=== PATIENT | male | born 1950 | race American Indian/Alaskan Native ===

== ENCOUNTER 2017-05-24 11:09 | Emergency (ER) | payer OTHER ==
[2017-05-24 11:15] VITALS: BP 147/74; PULSE 94; RESP 16; TEMP 97.7; O2SAT 97
[2017-05-24 12:16] LABS: BASO # 0.1 K/uL (0.0-0.2); BASO % 0.9 % (0.0-2.0); EOS # 0.3 K/uL (0.0-0.7); EOS % 3.4 % (0.0-4.0); HEMATOCRIT 41.8 % (35.0-51.0); LYMPH # 2.8 K/uL (1.0-4.3); LYMPH % 33.9 % (20.0-40.0); MEAN CELL VOLUME 95.7 fL (80.0-94.0); MEAN CORPUSCULAR HGB CONC 33.4 g/dL (33.0-37.0); MEAN PLATELET VOLUME 6.7 fL (7.2-11.7); MONO # 0.5 K/uL (0.0-0.8); MONO % 6.2 % (0.0-10.0); NRBC % 0.1 % (0.0-2.0); RED CELL DISTRIBUTION WIDTH 13.2 % (11.5-14.5); WHITE BLOOD COUNT 8.4 K/uL (4.8-10.8)
[2017-05-24] MEDS ORDERED: Morphine 30 mg SR Tab PO ONE (12:20)
--- NOTE | 2017-05-24 12:20 | C.PDOC ---
History Of Present Illness 67 y/o male presents to emergency department with complaint of right foot pain worsening over the past 1 month. Patient has been seen by vascular surgeon Dr. Bloom, who instructed patient to have outpatient CT angio done. However patient has been unable to schedule test, of the leg, and is concerned due to pain. He denies falls or injuries, chest pain, SOB, fever. Time Seen by Provider: 05/24/17 11:11 Chief Complaint (Nursing): Lower Extremity Problem/Injury History Per: Patient History/Exam Limitations: no limitations Onset/Duration Of Symptoms: Persistent Current Symptoms Are (Timing): Still Present Severity: Mild Past Medical History Reviewed: Historical Data, Nursing Documentation, Vital Signs Vital Signs: Last Vital Signs Temp 97.7 F 05/24/17 11:12 Pulse 94 H 05/24/17 11:12 Resp 16 05/24/17 11:12 BP 147/74 05/24/17 11:12 Pulse Ox 97 05/24/17 15:22 - Medical History PMH: No Chronic Diseases Other PMH: PVD Family History: States: No Known Family Hx - Social History Hx Alcohol Use: No Hx Substance Use: No - Immunization History Hx Tetanus Toxoid Vaccination: No Hx Influenza Vaccination: No Hx Pneumococcal Vaccination: No Review Of Systems Except As Marked, All Systems Reviewed And Found Negative. Constitutional: Negative for: Fever, Chills Cardiovascular: Negative for: Chest Pain, Palpitations Respiratory: Negative for: Cough, Shortness of Breath Gastrointestinal: Negative for: Nausea, Vomiting Musculoskeletal: Positive for: Foot Pain (R) Skin: Negative for: Rash Neurological: Negative for: Weakness, Numbness, Dizziness Physical Exam - Physical Exam Appears: Well, Non-toxic, Other (in mild pain) Skin: Warm, Dry, Other (see extremity exam) Oral Mucosa: Moist Cardiovascular: Rhythm Regular Respiratory: Normal Breath Sounds, No Rales, No Rhonchi, No Wheezing Gastrointestinal/Abdominal: Normal Exam, Bowel Sounds, Soft, No Tenderness Back: Normal Inspection Extremity: Normal ROM, Tenderness (toes ), No Calf Tenderness, No Deformity, Other (R foot: skin mildly erythematous and toes mildly swollen, no warmth to touch, diminished pedal pulse) Pulses: Left Dorsalis Pedis: Normal, Right Dorsalis Pedis: Decreased Neurological/Psych: Oriented x3, Normal Sensation Gait: Steady ED Course And Treatment - Laboratory Results Result Diagrams: 05/24/17 12:12 05/24/17 12:12 O2 Sat by Pulse Oximetry: 97 (RA) Pulse Ox Interpretation: Normal - CT Scan/US CT Angio Lower Ext Other Rad Studies (CT/US): Read By Radiologist, Radiology Report Reviewed CT/US Interpretation: IMPRESSION: CT ANGIOGRAM ABDOMEN/ PELVIS: 1. Remarkable CT angiogram of the abdomen pelvis. RIGHT LOWER EXTREMITY CT ANGIOGRAM: 1. Common femoral artery profunda femoral artery are normal. 2. Multifocal areas of mild to severe stenosis throughout the SFA within area occlusion distal SFA. 3. Popliteal artery has moderate to severe stenosis. 4. Runoff shows an occluded popliteal artery and anterior tibial artery. The peroneal artery occludes in the proximal segment and reconstitutes via collaterals remains patent. LEFT LOWER EXTREMITY CT ANGIOGRAM: 1. Unremarkable common femoral artery profunda femoral artery. 2. Short segment area of moderate stenosis in the mid SFA. 3. Popliteal artery has a short segment severe stenosis in the mid segment. 4. Runoff shows occlusion of the anterior tibial artery posterior tibial artery. The peroneal artery occludes proximally then reconstitutes distally. Progress Note: Blood work and CT angio ordered and reviewed. Patient given low dose IV morphine for pain. Reevaluation Time: 15:30 Reassessment Condition: Improved (Patient reassessed, is comfortable and ambulating normally in ED. Pain has improved. Patient given copies of all studies, and was instructed to follow up with Dr. Bloom tomorrow in his office. Patient understands he should return to ED if he has any concerning symptoms.) - Physician Consult Information Physician Contacted: Hiram Bloom Jr. Outcome Of Conversation: Discussed angio results with Dr. Bloom, patient can be discharged home and will follow up with him in the office tomorrow. Disposition Counseled Patient/Family Regarding: Studies Performed, Diagnosis, Need For Followup - Disposition Referrals: Hiram Bloom Jr., MD [Staff Provider] - Disposition: HOME/ ROUTINE Disposition Time: 15:30 Condition: STABLE Additional Instructions: FOLLOW UP WITH DR BLOOM IN THE OFFICE TOMORROW RETURN TO ER IF YOU HAVE ANY CONCERNING SYMPTOMS Instructions: Peripheral Vascular Disease (ED) Forms: [employer] (Romansh) Print Language: PALAUAN - POA Present On Arrival: None - Clinical Impression Clinical Impression: PVD (peripheral vascular disease) - Scribe Statement The provider has reviewed the documentation as recorded by the Scribe Burt Ray All medical record entries made by the Scribe were at my direction and personally dictated by me. I have reviewed the chart and agree that the record accurately reflects my personal performance of the history, physical exam, medical decision making, and the department course for this patient. I have also personally directed, reviewed, and agree with the discharge instructions and disposition.
[2017-05-24 12:24] LABS: CHLORIDE 99 mmol/L (98-107); SODIUM 136 mmol/L (132-148)
[2017-05-24 12:25] LABS: POTASSIUM 4.3 mmol/L (3.6-5.2)
[2017-05-24 12:27] LABS: ALB/GLOB RATIO 0.9 (1.0-2.1); ALKALINE PHOSPHATASE 95 U/L (38-126); ALT/SGPT 28 U/L (21-72); AST/SGOT 20 U/L (17-59); BILIRUBIN,TOTAL 0.5 mg/dL (0.2-1.3); BLOOD UREA NITROGEN 18 mg/dL (9-20); CARBON DIOXIDE 27 mmol/L (22-30); GFR AFRICAN-AMERICAN > 60; GLUCOSE,RANDOM 95 mg/dL (75-110); TOTAL PROTEIN 9.6 g/dL (6.3-8.3)
[2017-05-24 12:28] LABS: CALCIUM 8.7 mg/dl (8.6-10.4)
[2017-05-24] MEDS ORDERED: Iodixanol 320 mg/ml 150 ml Bottle IV ONE (13:38)
--- NOTE | 2017-05-24 15:02 | CT ---
PROCEDURE: CT Angiography Abdomen, Pelvis and Lower Extremity with Contrast HISTORY: right leg PVD COMPARISON: None. TECHNIQUE: Technique: CT angiography of the abdomen, pelvis and bilateral lower extremities performed in the arterial phase of enhancement. Coronal and sagittal reformats, and well as rotating MIP images of the vessels generated at the workstation. Intravenous contrast dose: 150 milliliters Visipaque 320 Radiation dose: Total exam DLP = 1730.95 MGy-cm. This CT exam was performed using one or more of the following dose reduction techniques: Automated exposure control, adjustment of the mA and/or kV according to patient size, and/or use of iterative reconstruction technique. FINDINGS: CT ANGIOGRAPHY: ABDOMINAL AORTA:: the abdominal has moderate calcific plaque but otherwise unremarkable without stenosis or aneurysm. MAJOR AORTIC BRANCHES: Celiac Xenia: Unremarkable. Superior mesenteric artery: Unremarkable. Inferior mesenteric artery: Unremarkable. Renal arteries: Unremarkable. PELVIC ARTERIES: Right Common Iliac: Unremarkable. Right External Iliac: Unremarkable. Right Internal Iliac: Unremarkable. Left Common Iliac: Unremarkable. Left External Iliac: Unremarkable. Left Internal Iliac: Unremarkable. RIGHT LOWER EXTREMITY ARTERIES: Right Common Femoral: Unremarkable. Right Superficial Femoral: Multifocal areas of mild to severe stenosis throughout the SFA with a short segment occlusion of the distal SFA with reconstitution of the popliteal artery. Right Profunda Femoris: Unremarkable. Right Popliteal:Severe stenosis of popliteal artery. Right Anterior Tibial: Calcified and believed to be occluded Right Tibioperoneal Trunk: Unremarkable. Right Posterior Tibial: occluded. Right Peroneal: Proximal peroneal artery is occluded with reconstitution. The mid and distal peroneal artery is unremarkable. Right dorsalis pedis : Unremarkable. LEFT LOWER EXTREMITY ARTERIES: Left Common Femoral: Unremarkable. Left Superficial Femoral: Short segment area of moderate stenosis in the distal mid SFA. Left Profunda Femoris: Unremarkable. Left Popliteal: Short segment area of severe stenosis in the mid popliteal artery Left Anterior Tibial: Calcified and believed to occlude in the proximal segment with no reconstitution. Left Tibioperoneal Trunk: Severe calcification of the tibioperoneal artery which is otherwise patent. Left Posterior Tibial: Occluded Left Peroneal: Moderate calcific plaque occludes the proximal segment with possible distal reconstitution. Left Dorsalis pedis: Unremarkable. NON-ANGIOGRAPHIC ASPECT OF THE EXAM: LOWER THORAX: Emphysematous changes otherwise unremarkable LIVER: Unremarkable. No gross lesion or ductal dilatation. GALLBLADDER AND BILE DUCTS: Unremarkable. PANCREAS: Unremarkable. No gross lesion or ductal dilatation. SPLEEN: Unremarkable. ADRENALS: 15 millimeter right adrenal hypodense lesion. KIDNEYS AND URETERS: Unremarkable. No hydronephrosis. No solid mass. STOMACH AND BOWEL: Unremarkable. No obstruction. No gross mural thickening. APPENDIX: Normal appendix. PERITONEUM: Unremarkable. No free fluid. No free air. LYMPH NODES: Unremarkable. No enlarged lymph nodes. BLADDER: Unremarkable. REPRODUCTIVE: Unremarkable. BONES: No acute fracture. OTHER FINDINGS: None. IMPRESSION: CT ANGIOGRAM ABDOMEN/ PELVIS: 1. Remarkable CT angiogram of the abdomen pelvis. RIGHT LOWER EXTREMITY CT ANGIOGRAM: 1. Common femoral artery profunda femoral artery are normal. 2. Multifocal areas of mild to severe stenosis throughout the SFA within area occlusion distal SFA. 3. Popliteal artery has moderate to severe stenosis. 4. Runoff shows an occluded popliteal artery and anterior tibial artery. The peroneal artery occludes in the proximal segment and reconstitutes via collaterals remains patent. LEFT LOWER EXTREMITY CT ANGIOGRAM: 1. Unremarkable common femoral artery profunda femoral artery. 2. Short segment area of moderate stenosis in the mid SFA. 3. Popliteal artery has a short segment severe stenosis in the mid segment 4. Runoff shows occlusion of the anterior tibial artery posterior tibial artery. The peroneal artery occludes proximally then reconstitutes distally.
== END 2017-05-24 15:44 | disposition home or self-care (01) ==
LOC: C.ER 11:09
DX: I73.9 Peripheral vascular disease, unspecified (principal)
CPT/HCPCS: 75635; 80053; 85025; 85610; 85730; 96374; 99284; J2270; Q9967

== ENCOUNTER 2017-06-05 07:01 | Day surgery (SDC) | payer OTHER ==
[2017-05-29 11:08] VITALS: BMI 23.7
[2017-06-05] MEDS ORDERED: Midazolam 2 MG/2 ML VIAL ONE ×3 (08:40→09:16)
[2017-06-05] MEDS ORDERED: Propofol 10 mg/ml Inj (20 ML) ONE (08:40)
[2017-06-05] MEDS ORDERED: Iodixanol 320 MG/ML 200 ML BOTTLE IV ONE (08:45)
[2017-06-05] MEDS ORDERED: Iodixanol 320 MG/ML 100 ML BOTTLE IV ONE ×2 (08:45→09:37)
[2017-06-05] MEDS ORDERED: Lidocaine 2% Inj (20ml) ONE (08:45)
[2017-06-05] MEDS ORDERED: Nitroglycerin 50mg in D5W 50 MG/250 ML BOTTLE IV ONE (10:18)
[2017-06-05] MEDS ORDERED: Labetalol 25mg/5ml Syringe ONE (10:43)
--- NOTE | 2017-06-05 11:16 | PCM.SURG1 ---
Surgeon's Initial Post Op Note - Surgeon's Notes Surgeon: elena Senior Process Engineer: 0 Anesthesia Administered By: savage paris Pre-Operative Diagnosis: rest pain right foot Operative Findings: right distal sfa occlusion. distal peroneal reconstitiution. dp and pt reconstiute in foot. left has tibial disease and atheromas in left groin Post-Operative Diagnosis: same Operation Performed: oertofemoral angiogram via left groin. selective catherization of right femoral artery. pathway atherctomy. balloon 5mm to treated area/sfa and proximally with DCB. pressure closure left groin Specimen/Specimens Removed: 0 Estimated Blood Loss: EBL {In ML}: 50 Blood Products Given: N/A Drains Used: No Drains Post-Op Condition: Good Date of Surgery/Procedure: 06/05/17 Time of Surgery/Procedure: 11:20
--- NOTE | 2017-06-05 19:51 | VAS ---
DATE: 06/05/2017 PREOPERATIVE DIAGNOSES: Rest pain, right foot. PROCEDURE CARRIED OUT: Aortofemoral angiogram via left groin with selective catheterization of right femoral artery, Pathway atherectomy of the right superficial femoral artery and balloon angioplasty using a 5 mm drug-coated balloon to the treated area as well as proximally to the superficial femoral artery. SURGEON: Hiram Serrano MD NNPS: None. ANESTHESIOLOGIST: Dr. Mo. INDICATIONS: The patient is a 67-year-old male, diabetic, hypertensive, ex-smoker with rest pain in the right foot. PROCEDURE AND FINDINGS: The aorta and renal arteries were free of significant occlusive disease. The iliac arteries, common iliac and external iliac arteries, were free of significant occlusive disease. Both common femoral arteries were free of significant occlusive disease. On the left leg, the superficial femoral artery was widely patent to the tibial vessels. Below that on the left side, detailed pictures were not taken due to the dye limitations. On the right side, the superficial femoral artery occluded just above Joselo's canal and reconstituted approximately 5 cm later. The popliteal artery was continued down to the trifurcation where there were no named vessels feeding of this. All three vessels, the anterior tibial, posterior tibial and peroneal were occluded. In the distal half of the peroneal artery, it reconstituted. It supplied branches which reconstituted both the dorsalis pedis and posterior tibial below the ankle. Subsequent to the performance of the diagnostic arteriogram, guidewire was advanced to the aortic bifurcation and the lesion was crossed in superficial femoral artery. The Pathway atherectomy device was used to treat this, which was subsequently touched up with a 5 mm balloon as well as proximally in the superficial femoral artery 5 mm balloon. After this, we numbly made multiple attempts to crossing the lesion into the peroneal artery and we were partially successful in doing so, but we were unable to advance the wire distally. Because of this, we abandoned further attempts at this. So the operation carried out. Heparin was given during the procedure. Aortofemoral angiogram with selective catheterization of right femoral artery. Pathway atherectomy of the right superficial femoral artery, balloon angioplasty including drug-coated balloon to the superficial femoral artery on the right side. Hiram Serrano Jr., MD cc: Uriah Love MD
== END 2017-06-05 16:00 | disposition home or self-care (01) ==
LOC: C.SPRAD 07:01
PROVIDERS: ATTEND Surgery Vascular Surgery
DX: M79.671 Pain in right foot (principal); E11.9 Type 2 diabetes mellitus without complications; I10 Essential (primary) hypertension; Z87.891 Personal history of nicotine dependence
CPT/HCPCS: 36247; 37225; 75625; 82948; C1724; C1766; C1769; C1887; C1894; C2623; J0360; J1644; J2250; J2704; J3010; Q9966; Q9967